=== PATIENT | female | born 1950 | race Caucasian/White ===

== ENCOUNTER 2023-10-14 09:34 | Inpatient (IN) | payer MEDICARE, OTHER ==
[~2023-10-14] VITALS: Ht 157.5 cm; Wt 79.8 kg
[2023-10-14] MEDS: CEFAZOLIN 2 G in IV DEXTROSE 5% 100 ML IV ONE (10:00)
[2023-10-14] MEDS ORDERED: BACITRACIN/POLYMYXIN B OINT 15 GM TUBE ONE (10:30)
[2023-10-14 11:01] LABS: BASOPHILS % (AUTO) 0.7 % (0.0-2.0); EOSINOPHILS % (AUTO) 1.1 % (0.0-7.0); HEMATOCRIT 36.8 % (31.2-41.9); HEMOGLOBIN 12.4 g/dL (10.9-14.3); LYMPHOCYTES # (AUTO) 1.3 K/uL (0.8-4.8); LYMPHOCYTES % (AUTO) 30.8 % (20.5-51.5); MEAN CORPUSCULAR HEMOGLOBIN 29.2 uug (24.7-32.8); MEAN CORPUSCULAR HGB CONC 34 g/dL (32.3-35.6); MEAN CORPUSCULAR VOLUME 86.8 fL (75.5-95.3); MONOCYTES # (AUTO) 0.3 K/uL (0.1-1.30); MONOCYTES % (AUTO) 6.8 % (0.0-11.0); NEUTROPHILS # (AUTO) 2.6 K/uL (1.8-8.9); NEUTROPHILS % (AUTO) 60.6 % (38.5-71.5); PLATELET COUNT (AUTO) 164 K/uL (179-408); RED BLOOD CELL COUNT(AUTO) 4.24 MIL/uL (3.63-4.92); WHITE BLOOD COUNT (AUTO) 4.3 K/uL (3.8-11.8)
[2023-10-14 11:08] LABS: *BILIRUBIN,URIN NEGATIVE (NEGATIVE); *CLARITY,URINE CLEAR (CLEAR); *COLOR,URINE YELLOW (YELLOW); *KETONES,URINE NEGATIVE (NEGATIVE); *PROTEIN,URINE 1+ (NEGATIVE); *UROBILINOGEN,URINE 0.2 E.U./dl (NORMAL); LEUKOCYTE ESTERASE ,URINE TRACE (NEGATIVE); NITRITE, URINE NEGATIVE (NEGATIVE); UGLUCOSE NEGATIVE (NEGATIVE)
[2023-10-14 11:09] LABS: DIFFERENTIAL COMMENT 1
[2023-10-14 11:13] LABS: CARBON DIOXIDE 29 mmol/L (21-32); CHLORIDE 108 mmol/L (98-107); CREATININE 0.9 mg/dL (0.6-1.3); GLUCOSE 117 mg/dL (74-106); SODIUM SERUM 142 mmol/L (136-145); UREA NITROGEN, BLOOD 15 mg/dL (7-18)
[2023-10-14 11:18] LABS: *BLOOD, URINE TRACE (NEGATIVE)
[2023-10-14 11:19] LABS: ALANINE AMINOTRANSFERASE 20 U/L (14-59); ALBUMIN 3.5 g/dL (3.4-5.0); ALKALINE PHOSPHATASE 106 U/L (50-136); ASPARTATE AMINOTRANSFERASE 16 U/L (15-37); BILIRUBIN,TOTAL 0.7 mg/dL (0.2-1.0); TOTAL PROTEIN, SERUM 6.9 g/dL (6.4-8.2)
[2023-10-14] MEDS: GABAPENTIN 100 MG CAPSULE PO ONE (12:00)
[2023-10-14] MEDS ORDERED: ACETAMINOPHEN ES 500 MG TABLET PO ONE (12:00)
[2023-10-14] MEDS ORDERED: ACETAMINOPHEN 325 MG TABLET PO ONE (12:00)
[2023-10-14 13:07] LABS: POTASSIUM 4.7 mmol/L (3.5-5.1)
[2023-10-14] MEDS ORDERED: FENTANYL CITRATE 100 MCG/2 ML AMPUL ONE ×2 (13:07→15:02)
[2023-10-14] MEDS ORDERED: FAMOTIDINE. 20 MG/2 ML VIAL IV ONE (13:07)
[2023-10-14] MEDS ORDERED: ROCURONIUM BROMIDE 50 MG/5 ML VIAL ONE (13:07)
[2023-10-14] MEDS ORDERED: MIDAZOLAM HCL 2 MG/2 ML VIAL ONE (13:07)
[2023-10-14 14:45] LABS: RBC,URINE 0-3 /HPF (0-3)
[2023-10-14 14:46] LABS: BACTERIA,URINE MODERATE /HPF (NONE SEEN); SQUAMOUS EPITHELIAL CELL,UR FEW /HPF (NONE SEEN); YEAST,URINE BUDDING YEAST /HPF (NONE SEEN)
[2023-10-14] MEDS ORDERED: HYDROMORPHONE 1 MG/1 ML DISP.SYRIN ONE (14:47)
[2023-10-14] MEDS ORDERED: ONDANSETRON 4 MG/2 ML VIAL ONE (14:58)
[2023-10-14] MEDS ORDERED: ZOLP5TAB2 PO (15:08)
[2023-10-14] MEDS ORDERED: METF-440 PO (15:08)
[2023-10-14] MEDS ORDERED: AZIL80TA PO (15:08)
[2023-10-14] MEDS ORDERED: HYDR-4077 PO (15:08)
[2023-10-14] MEDS ORDERED: AMLO10TA59 PO (15:08)
[2023-10-14] MEDS ORDERED: ASPI-495 PO (15:08)
[2023-10-14] MEDS ORDERED: ONDANSETRON 4 MG/2 ML VIAL IV PRN (17:00)
[2023-10-14] MEDS ORDERED: MORPHINE SULFATE 2 MG/1 ML DISP.SYRIN IV PRN (17:00)
[2023-10-14] MEDS ORDERED: MAGNESIUM HYDROXIDE 30 ML LIQUID UDC PO PRN (17:00)
[2023-10-14] MEDS ORDERED: ZOLPIDEM 5 MG TABLET PO PRN ×2 (17:00)
[2023-10-14] MEDS ORDERED: hydrALAZINE HCL 50 MG TABLET PO PRN (17:00)
[2023-10-14] MEDS ORDERED: HYDROCODONE/APAP 5-325MG TABLET PO PRN (17:00)
[2023-10-14] MEDS ORDERED: DEXTROSE 50% 50 ML DISP.SYRIN IV PRN (17:15)
[2023-10-14] MEDS: CELECOXIB 200 MG CAPSULE PO SCH (17:26)
[2023-10-14] MEDS: GABAPENTIN 100 MG CAPSULE PO SCH (17:27)
[2023-10-14] MEDS: ACETAMINOPHEN 325 MG TABLET PO SCH (17:32)
[2023-10-14] MEDS: IV LACTATED RINGERS SOLUTION 1,000 ML IV PRN (18:00)
[2023-10-14 19:30] VITALS: BP 127/58; TEMP 98.4; O2SAT 96
[2023-10-14] MEDS: ACETAMINOPHEN 325 MG TABLET PO PRN (21:39)
[2023-10-14] MEDS: BLOOD SUGAR DIAGNOSTIC 1 EACH STRIP VI SCH (21:56)
[2023-10-14] MEDS: INSULIN REGULAR, HUMAN 300 UNIT/3 ML VIAL SQ PRN (21:57)
[2023-10-14] MEDS ORDERED: PIPERACILLIN SODIUM/TAZOBACTAM 3.375 G in IV DEXTROSE 5% 50 ML IV SCH (22:00)
[2023-10-14] MEDS: PIPERACILLIN SODIUM/TAZOBACTAM 3.375 G in IV DEXTROSE 5% 100 ML IV SCH (22:37)
[2023-10-15 01:26] VITALS: O2SAT 96
[2023-10-15 05:00] VITALS: BP 124/58; TEMP 97.5; O2SAT 99
[2023-10-15 07:33] LABS: CALCIUM 8.7 mg/dL (8.5-10.1); CARBON DIOXIDE 27 mmol/L (21-32); CREATININE 1.1 mg/dL (0.6-1.3); GLUCOSE 144 mg/dL (74-106); MAGNESIUM 1.7 mg/dL (1.8-2.4); PHOSPHOROUS 4.7 mg/dL (2.5-4.9); UREA NITROGEN, BLOOD 18 mg/dL (7-18)
[2023-10-15 07:37] LABS: BASOPHILS % (AUTO) 0.1 % (0.0-2.0); HEMATOCRIT 34.9 % (31.2-41.9); HEMOGLOBIN 11.7 g/dL (10.9-14.3); LYMPHOCYTES # (AUTO) 0.8 K/uL (0.8-4.8); LYMPHOCYTES % (AUTO) 10.3 % (20.5-51.5); MEAN CORPUSCULAR HEMOGLOBIN 29.3 uug (24.7-32.8); MEAN CORPUSCULAR HGB CONC 34 g/dL (32.3-35.6); MEAN CORPUSCULAR VOLUME 87.4 fL (75.5-95.3); MONOCYTES # (AUTO) 0.4 K/uL (0.1-1.30); MONOCYTES % (AUTO) 5.4 % (0.0-11.0); NEUTROPHILS # (AUTO) 6.6 K/uL (1.8-8.9); NEUTROPHILS % (AUTO) 84.2 % (38.5-71.5); PLATELET COUNT (AUTO) 168 K/uL (179-408); RED CELL DISTRIBUTION WIDTH 13.4 % (12.3-17.7); WHITE BLOOD COUNT (AUTO) 7.8 K/uL (3.8-11.8)
[2023-10-15 07:39] LABS: THYROID STIMULATING HORMONE 0.644 mIU/mL (0.358-3.740)
[2023-10-15 07:49] LABS: CHLORIDE 106 mmol/L (98-107); POTASSIUM 4.5 mmol/L (3.5-5.1); SODIUM SERUM 141 mmol/L (136-145)
[2023-10-15] MEDS: ASPIRIN EC 81 MG TABLET.DR PO SCH (08:08)
[2023-10-15] MEDS: PANTOPRAZOLE SODIUM 40 MG VIAL IV SCH (08:08)
[2023-10-15] MEDS: ENOXAPARIN SODIUM 40 MG/0.4 ML DISP.SYRIN SQ SCH (08:09)
[2023-10-15 08:22] LABS: DIFFERENTIAL COMMENT 1
[2023-10-15 08:51] VITALS: BP 128/60
[2023-10-15] MEDS: AMLODIPINE 10 MG TABLET PO SCH (08:51)
[2023-10-15] MEDS ORDERED: EDARBI 80 MG PO SCH (09:00)
[2023-10-15] MEDS ORDERED: ONDA4TAB5 PO (09:01)
[2023-10-15] MEDS ORDERED: AMOX-430 PO (09:01)
[2023-10-15] MEDS ORDERED: HYDR-3972 PO (09:01)
[2023-10-15] MEDS: MAGNESIUM OXIDE 400 MG TABLET PO ONE (10:46)
== END 2023-10-15 12:30 | disposition home or self-care (01) | DRG 418 ==
LOC: DS 09:34 → MEDSURG3 16:00
PROVIDERS: ADMIT Surgery; ATTEND Nurse Practitioner Acute Care
PROC: 0FT44ZZ Resection of Gallbladder, Percutaneous Endoscopic Approach (ICD-10-PCS; principal; 2023-10-14)
PROC: 0DNU4ZZ Release Omentum, Percutaneous Endoscopic Approach (ICD-10-PCS; 2023-10-14)
DX: K80.12 Calculus of gallbladder with acute and chronic cholecystitis without obstruction (principal); B37.49 Other urogenital candidiasis; E78.5 Hyperlipidemia, unspecified; E11.9 Type 2 diabetes mellitus without complications; I11.9 Hypertensive heart disease without heart failure; E66.9 Obesity, unspecified; Z68.32 Body mass index [BMI] 32.0-32.9, adult; I25.10 Atherosclerotic heart disease of native coronary artery without angina pectoris; K21.9 Gastro-esophageal reflux disease without esophagitis; Z82.49 Family history of ischemic heart disease and other diseases of the circulatory system; Z88.3 Allergy status to other anti-infective agents; Z80.1 Family history of malignant neoplasm of trachea, bronchus and lung; Z95.5 Presence of coronary angioplasty implant and graft; M19.90 Unspecified osteoarthritis, unspecified site; K66.0 Peritoneal adhesions (postprocedural) (postinfection); G89.29 Other chronic pain; F41.9 Anxiety disorder, unspecified; Z79.84 Long term (current) use of oral hypoglycemic drugs; Z79.82 Long term (current) use of aspirin; Z79.899 Other long term (current) drug therapy
CPT/HCPCS: 36415; 71045; 83735; 84100; 84443; 85025; 85730; 93005; A4663; A9150; C9113; G0378; J0690; J1170; J1650; J1815; J2250; J2405; J2543; J3010; J3490; J7120